=== PATIENT | male | born 1990 | race Two or more races ===

== ENCOUNTER 2018-03-23 12:53 | Emergency (ER) | payer MEDICARE, OTHER ==
[2018-03-23 13:01] VITALS: BP 141/72
--- NOTE | 2018-03-23 13:08 | ER Document Report ---
HPI - HPI Patient complains to provider of: Sore throat Onset: Yesterday Onset/Duration: Sudden Pain Level: 4 Context: 28-year-old male complaining of left-sided sore throat and white on his left tonsil. Low-grade fever today. No headache or vomiting. No cough. No rash. Associated Symptoms: None Exacerbated by: Other - Swallowing Relieved by: Denies - ROS ROS below otherwise negative: Yes Systems Reviewed and Negative: Yes All other systems reviewed and negative Past Medical History - General Information source: Patient - Social History Smoking Status: Never Smoker Frequency of alcohol use: None Drug Abuse: None Lives with: Family Family History: Reviewed & Not Pertinent GI Medical History: Reports: Hx Gastroesophageal Reflux Disease Psychiatric Medical History: Reports: Hx Post Traumatic Stress Disorder - previous Traumatic Medical History: Reports: Hx Traumatic Brain Injury Past Surgical History: Reports: Hx Cardiac Surgery - as an , Hx Genitourinary Surgery - Endoscopy - Immunizations Hx Diphtheria, Pertussis, Tetanus Vaccination: Yes Vertical Provider Document - CONSTITUTIONAL Agree With Documented VS: Yes Exam Limitations: No Limitations General Appearance: No Apparent Distress - INFECTION CONTROL TRAVEL OUTSIDE OF THE [place] IN LAST 30 DAYS: No - HEENT HEENT: Normocephalic, Pharyngeal Tenderness Notes: Exudative left tonsil no abscess uvula midline - NECK Neck: Supple, Lymphadenopathy-Left - Anterior. negative: Lymphadenopathy-Right - RESPIRATORY Respiratory: Breath Sounds Normal, No Respiratory Distress - CARDIOVASCULAR Cardiovascular: Regular Rate, Regular Rhythm - GI/ABDOMEN Gastrointestinal: Abdomen Soft, Abdomen Non-Tender, No Organomegaly - MUSCULOSKELETAL/EXTREMETIES Musculoskeletal/Extremeties: MAEW - NEURO Level of Consciousness: Awake - DERM Integumentary: No Rash Course - Vital Signs Vital signs: Temp Pulse Resp BP Pulse Ox 99.2 F 84 18 141/72 H 97 03/23/18 13:00 03/23/18 13:00 03/23/18 13:00 03/23/18 13:00 03/23/18 13:00 Discharge - Discharge Clinical Impression: Left exudative tonsillitis Condition: Good Disposition: HOME, SELF-CARE Instructions: Acetaminophen, Ibuprofen (General) ([facility]), Penicillin V K ([facility]), Sore Throat ([facility]) Additional Instructions: Drink plenty of fluids rest Tylenol Motrin Throat culture will be pending if the rapid strep is negative Penicillin Return to the emergency room if symptoms worsen Prescriptions: Ibuprofen [Motrin 800 mg Tablet] 800 mg PO Q8HP PRN #30 tablet PRN Reason: Penicillin V Potassium [Penicillin Vk 500 mg Tablet] 500 mg PO QID #40 tablet Forms: Return to Work Referrals: MAVIS PANDEY PA-C [Primary Care Provider] - Follow up as needed
== END 2018-03-23 13:33 | disposition home or self-care (01) ==
LOC: ER 12:53
DX: J03.90 Acute tonsillitis, unspecified (principal); R50.9 Fever, unspecified
CPT/HCPCS: 87880; 99283

== ENCOUNTER 2018-12-13 01:26 | Emergency (ER) | payer SELFPAY ==
[2018-12-13 01:32] VITALS: BP 159/95
[2018-12-13] MEDS ORDERED: AMOXICILLIN TRIHYDRATE 500 MG CAPSULE PO ONE (01:43)
--- NOTE | 2018-12-13 01:45 | ER Document Report ---
ED General - General Chief Complaint: Flu Symptoms Stated Complaint: SORE THROAT Time Seen by Provider: 12/13/18 01:34 Information source: Patient TRAVEL OUTSIDE OF THE [place] IN LAST 30 DAYS: No - HPI Patient complains to provider of: Very sore throat, hurts to swallow Onset: Other - 3 days ago Onset/Duration: Gradual, Persistent, Worse Quality of pain: Burning Severity: Moderate Associated symptoms: denies: Chills, Fever Exacerbated by: Denies Relieved by: Denies Similar symptoms previously: No Recently seen / treated by doctor: No Notes: 28-year-old -[place] male coming in today with extremely sore throat. He started off with a prodrome of body aches fevers headaches and chills. Sore throat started on the third day and is hurting the patient to swallow. No fevers or chills. No nausea vomiting or diarrhea. No headache or abdominal pain. - Related Data Allergies/Adverse Reactions: No Known Allergies Allergy (Verified 03/23/18 12:56) Past Medical History - General Information source: Patient - Social History Smoking Status: Never Smoker Family History: Reviewed & Not Pertinent - Past Medical History Cardiac Medical History: Denies: Hx Coronary Artery Disease, Hx Heart Attack, Hx Hypertension Pulmonary Medical History: Denies: Hx Asthma, Hx Bronchitis, Hx COPD, Hx Pneumonia Neurological Medical History: Denies: Hx Cerebrovascular Accident, Hx Seizures Endocrine Medical History: Denies: Hx Diabetes Mellitus Type 1, Hx Diabetes Mellitus Type 2 Renal/ Medical History: Denies: Hx Epididymitis, Hx Peritoneal Dialysis, Hx Testicular Torsion GI Medical History: Reports: Hx Gastroesophageal Reflux Disease Musculoskeletal Medical History: Denies Hx Arthritis Psychiatric Medical History: Reports: Hx Post Traumatic Stress Disorder - previous Traumatic Medical History: Reports: Hx Traumatic Brain Injury Past Surgical History: Reports: Hx Cardiac Surgery - as an infant, Hx Genitourinary Surgery - Endoscopy. Denies: Hx Pacemaker - Immunizations Hx Diphtheria, Pertussis, Tetanus Vaccination: Yes Review of Systems - Review of Systems Notes: Constitutional: No fevers. No chills. EENT: No eye redness. No eye pain. No ear pain. + sore throat. Cardiovascular: No chest pain. No palpitations. Respiratory: No cough. No shortness of breath. No respiratory distress. Gastrointestinal: No abdominal pain. No nausea, vomiting, or diarrhea. Genitourinary: Atraumatic. No lesions. No pain. No discharge. Musculoskeletal: Atraumatic. No swelling. No deformities. Skin: No rash or lesions. Lymphatic: No swollen lymph nodes. Neurologic: No headache. No syncope. Psychiatric: No suicidal or homicidal ideation. Physical Exam - Vital signs Vitals: Temp Pulse Resp BP Pulse Ox 98.8 F 80 20 159/95 H 98 12/13/18 01:30 12/13/18 01:30 12/13/18 01:30 12/13/18 01:12/13/18 01:30 - Notes Notes: General: Well-developed, well-nourished. In no acute distress. Non-toxic appearing. Cardiac: Well-perfused. Regular rate and rhythm. No murmurs, rubs, or gallops. Pulmonary: No respiratory distress. No cyanosis. Bilateral lung fiels are clear to auscultation. Abdominal: Non-distended. Non-rigid. Bowels sounds are present in all four quadrants. No guarding or rebound. HEENT: Head is atraumatic. Conjunctivae not reddened. No tearing. PERRL. EOMI. Orbits atraumatic. No periorbital swelling or erythema. Oropharynx is patient is tolerating secretions well Neck: Supple. No adenopathy. No meningismus. Dermatologic: Warm with good turgor. No rash. Atraumatic. Chest: Atraumatic. No chest wall tenderness to palpation. Musculoskeletal: Moves all extremities well. No range of motion deficits. no muscular or joint tenderness. No paraspinal muscle tenderness. no midline spinal tenderness or step-off. Genitourinary: Examination deferred Neurologic: No gross neurologic deficits. Psychiatric: Normal mood. Course - Vital Signs Vital signs: Temp Pulse Resp BP Pulse Ox 98.8 F 80 20 159/95 H 98 12/13/18 01:30 12/13/18 01:30 12/13/18 01:30 12/13/18 01:30 12/13/18 01:30 Discharge - Discharge Clinical Impression: Elevated blood pressure reading Pharyngitis Qualifiers: Pharyngitis/tonsillitis etiology: unspecified etiology Qualified Code(s): J02.9 - Acute pharyngitis, unspecified Condition: Good Disposition: HOME, SELF-CARE Instructions: Sore Throat ([facility]) Prescriptions: Amoxicillin Trihydrate [Amoxil 500 mg Capsule] 500 mg PO TID #21 capsule Prednisone [Deltasone 20 mg Tablet] 2 tab PO DAILY 3 Days #6 tablet Referrals: [facility] [Provider Group] - Follow up as needed
== END 2018-12-13 01:55 | disposition home or self-care (01) ==
LOC: ER 01:26
DX: J02.9 Acute pharyngitis, unspecified (principal); R03.0 Elevated blood-pressure reading, without diagnosis of hypertension
CPT/HCPCS: 99283